=== PATIENT | female | born 1960 ===

== ENCOUNTER 2024-01-24 08:36 | Outpatient (CLI) | payer OTHER ==
[2024-01-24 09:17] LABS: HEMATOCRIT 41.6 % (36.0-45.00); HEMOGLOBIN 14.1 g/dL (12.0-15.00); MEAN CELL VOLUME 88.4 fL (80.00-100.00); MEAN CORPUSCULAR HEMOGLOBIN 30.1 pg (27.00-32.0); PLATELET COUNT 192 K/uL (150-450); RED CELL DISTRIBUTION WIDTH 13.7 % (11.5-14.5)
[2024-01-24 09:46] LABS: INR 0.94; PARTIAL THROMBOPLASTIN TIME 27.8 SECONDS (22.0-34.0); PROTHROMBIN TIME 9.9 SECONDS (9.0-11.5)
[2024-01-24 09:48] LABS: CALCIUM 9.4 mg/dL (8.5-10.1); CREATININE SERUM 0.7 mg/dL (0.55-1.02); GFR 83.98; POTASSIUM 4.13 mEq/L (3.5-5.1)
[2024-01-24 10:10] LABS: URINE APPEARANCE Clear; URINE BILIRRUBIN Negative (NEGATIVE); URINE BLOOD Moderate; URINE COLOR Yellow; URINE GLUCOSE Negative (NEGATIVE); URINE KETONE Negative (NEGATIVE); URINE LEUKOCYTE Negative; URINE NITRATE Negative; URINE PROTEIN Negative (NEGATIVE); URINE UROBILINOGEN 0.2 E.U./dl
[2024-01-24 10:14] LABS: URINE BACTERIA 220.4 uL (0.0-1933); URINE EPITHELIAL CELLS 31.8 uL (0.0-38.8); URINE RBC 72.5 uL (0.0-20.8); URINE WBC 31.6 uL (0.0-23.2)
[2024-01-24 10:21] LABS: URINE CAST 0.45 uL (0.0-1.40)
== END 2024-01-24 08:37 | disposition home or self-care (01) ==
LOC: RAD 08:36 → LAB 08:36 → RAD 08:37
DX: H26.491 Other secondary cataract, right eye (principal); Z01.812 Encounter for preprocedural laboratory examination